=== PATIENT | male | born 1955 | race Caucasian/White ===

== ENCOUNTER → 2017-11-25 | Emergency (ER) | payer OTHER ==
[~2017-11-25] VITALS: Ht 177.8 cm; Wt 67.1 kg
[~2017-11-25] MED LIST: DICLOFENAC POTA50 MG PO; HUMIRA20 MG/0.4
== END | disposition home or self-care (01) ==
LOC: ER 19:35
DX: S22.42XA Multiple fractures of ribs, left side, initial encounter for closed fracture (principal); V19.9XXA Pedal cyclist (driver) (passenger) injured in unspecified traffic accident, initial encounter; Y93.89 Activity, other specified; Y92.89 Other specified places as the place of occurrence of the external cause; Y99.8 Other external cause status